=== PATIENT | male | born 1980 | race Caucasian/White ===

== ENCOUNTER 2016-07-01 08:08 | Day surgery (SDC) | payer BC, OTHER ==
[~2016-07-01 08:08] MED LIST: Lactated Ringers 1,000 ML IV SCH; Midazolam 1 MG/ML 2 ML SDV ONE; Propofol 200 MG/20 ML SDV ONE; fentaNYL 100 MCG/2 ML SDV ONE
--- NOTE | 2016-07-01 08:38 | PCM.PREANE ---
Preanesthetic Assessment - Anesthesia/Transfusion/Family Hx Anesthesia History: Prior Anesthesia Without Reaction Family History of Anesthesia Reaction: No Transfusion History: No Prior Transfusion(s) Intubation History: Unknown - Review of Systems General: No Symptoms Pulmonary: No Symptoms Cardiovascular: No Symptoms Gastrointestinal: Abdominal pain Neurological: No Symptoms Other: Reports: None - Physical Assessment O2 Sat by Pulse Oximetry: 100 Respiratory Rate: 14 Vital Signs: Last Vital Signs Temp 36 C 07/01/16 08:19 Pulse 58 L 07/01/16 08:19 Resp 14 07/01/16 08:19 BP 115/73 07/01/16 08:19 Pulse Ox 100 07/01/16 08:19 Height: 2.01 m Weight: 98.883 kg ASA Class: 1 Mental Status: Alert & Oriented x3 Airway Class: Mallampati = 2 Dentition: Reports: Normal Dentition Thyro-Mental Finger Breadths: 3 Mouth Opening Finger Breadths: 3 ROM/Head Extension: Full Lungs: Clear to auscultation, Normal respiratory effort Cardiovascular: Regular Rate, Regular Rhythm - Allergies Allergies/Adverse Reactions: Allergies Allergy/AdvReac Type Severity Reaction Status Date / Time Penicillins Allergy Shortness Verified 06/27/16 07:57 of Breath - Blood Blood Available: No - Anesthesia Plan Pre-Op Medication Ordered: None - Acknowledgements Anesthesia Type Planned: MAC Pt an Appropriate Candidate for the Planned Anesthesia: Yes Alternatives and Risks of Anesthesia Discussed w Pt/Guardian: Yes Pt/Guardian Understands and Agrees with Anesthesia Plan: Yes PreAnesthesia Questionnaire Gastrointestinal History: Reports: Other (See Below) Other Gastrointestinal History: occasional heartburn, abdominal pain, blood in stool Musculoskeletal History: Reports: Fracture Other Musculoskeletal History: hx fx wrist - Past Surgical History Head Surgeries/Procedures: Reports: None HEENT Surgical History: Reports: LASIK Musculoskeletal Surgical History: Reports: Other (See Below) Other Musculoskeletal Surgeries/Procedures:: hx right bunionectomy - SUBSTANCE USE Smoking Status *Q: Never Smoker Recreational Drug Use History: No - HOME MEDS Home Medications: Home Meds Ibuprofen 400 mg PO ASDIRECTED PRN 06/27/16 [History] - CURRENT (IN HOUSE) MEDS Current Meds: Current Medications Lactated Ringer's (Ringers, Lactated) 1,000 mls @ 125 mls/hr IV ASDIRECTED [facility] Last Admin: 07/01/16 08:21 Dose: 125 mls/hr Discontinued Medications Fentanyl (Sublimaze) Confirm Administered Dose 100 mcg .ROUTE .STK-MED ONE Stop: 07/01/16 07:20 Midazolam HCl (Versed 1 Mg/Ml) Confirm Administered Dose 2 mg .ROUTE .STK-MED ONE Stop: 07/01/16 07:20 Propofol (Diprivan 20 Ml) Confirm Administered Dose 400 mg .ROUTE .STK-MED ONE Stop: 07/01/16 07:20
--- NOTE | 2016-07-01 09:43 | PCM.OPNOTE ---
- General Post-Op/Procedure Note Date of Surgery/Procedure: 07/01/16 Operative Procedure(s): colonoscopy w bx Findings: see dict [id number], addendum [id number] Pre Op Diagnosis: rectal bleed Post-Op Diagnosis: hemorrhoid Anesthesia Technique: Moderate sedation Primary Surgeon: Igor Mccormick Pathology: random colon bx Complications: None Condition: Good
--- NOTE | 2016-07-01 09:51 | PCM.POSTAN ---
POST ANESTHESIA ASSESSMENT - MENTAL STATUS Mental Status: alert, oriented - RESPIRATORY Respiratory Status: respiratory rate WNL, airway patent, O2 saturation stable - CARDIOVASCULAR CV Status: pulse rate WNL, blood pressure stable - GASTROINTESTINAL GI Status: no symptoms - POST OP HYDRATION Hydration Status: adequate & stable - OBSERVATIONS Free Text/Narrative:: no anesthesia problems
[2016-07-01 10:14] VITALS: BP 111/62
--- NOTE | 2016-07-01 13:36 | OR ---
SURGEON: Igor Mccormick MD DATE OF PROCEDURE: 07/01/2016 ADDENDUM: Random biopsy was performed throughout the colon for bloody diarrhea and abdominal pain. SHEREEN / ANNITA /[id number]
--- NOTE | 2016-07-01 13:48 | OR ---
SURGEON: Igor Mccormick MD DATE OF PROCEDURE: 07/01/2016 PREOPERATIVE DIAGNOSIS: Rectal bleeding. POSTOPERATIVE DIAGNOSIS: Internal hemorrhoid. PROCEDURE PERFORMED: Colonoscopy with biopsy. FINDINGS: 1. The patient is easily sedated with [employer]IO [employer] INVESTIGATOR and Diprivan. The patient is soundly snoring. 2. Bowel prep is excellent with very little liquid stool. No semi-formed stool. 3. The patient's colon rather straight forward. Cecum indicated by ileocecal fold, one-to-one indentation, light immittance, and appendiceal orifice and mucosa examined upon scope pulling out. The patient does not have polyp, mass, diverticulosis, inflammation, stricture, ulceration, bleeding, or AV malformation. The patient does have 2 large anal tags and some mild internal hemorrhoids. No external hemorrhoids. The patient would benefit from repeat colonoscopy 10 years from today and if the bleeding continue to bother, the patient may benefit from internal hemorrhoidectomy just for symptomatic. We will discuss this on followup appointment. The patient would benefit from repeat colonoscopy 10 years from today. DESCRIPTION OF PROCEDURE: The patient was taken to the endoscopy room. A time out was called, patient identified, and procedure identified. Diprivan was then administrated. Patient went from awake to sleep, hearing doctor talking or door closing is normal. Perineum inspection and digital examination were then performed. A well- lubricated colonoscope was gently inserted through the rectum, advanced past the rectosigmoid junction, the descending colon, splenic flexure, transverse colon, hepatic flexure, ascending colon, arrived to the cecum. Cecum was identified as dictated in the finding. Then the scope was carefully withdrawn while attention was paid to the mucosal surface for any abnormality. Air will be sucked out during the scope withdrawal. At the rectum, retroflexed to examine any rectal diseases, fistula or hemorrhoids. During mucosal examination, random biopsy performed. Patient tolerated procedure well. There were no intraoperative complications, and Dr. Mccormick was present throughout the whole procedure. SHEREEN / ANNITA /[id number] DEVIKA
== END 2016-07-01 10:18 | disposition home or self-care (01) ==
LOC: MW.SDS 08:08
PROVIDERS: ATTEND Surgery
DX: K64.4 Residual hemorrhoidal skin tags (principal); K64.8 Other hemorrhoids; R10.9 Unspecified abdominal pain; Z98.890 Other specified postprocedural states; Z88.0 Allergy status to penicillin; Z72.89 Other problems related to lifestyle
CPT/HCPCS: 45380; 88305; J2250; J3010; J7120; J2704

== ENCOUNTER 2016-10-24 07:11 | Emergency (ER) | payer OTHER ==
[2016-10-24] MEDS ORDERED: Acetaminophen/HYDROcodone 325-7.5 MG Tab PO ONE (07:25)
--- NOTE | 2016-10-24 07:27 | EDM.PDOC ---
ED HPI GENERAL MEDICAL PROBLEM - General Chief Complaint: General Stated Complaint: PAINFUL RIBS Time Seen by Provider: 10/24/16 07:20 - History of Present Illness INITIAL COMMENTS - FREE TEXT/NARRATIVE: HISTORY AND PHYSICAL: History of present illness: The patient is a 36-year-old healthy male who presents with complaints to right anterior ribs that started last evening while he was playing basketball and was accidentally hit by somebody's shoulder in that region as he was going up for a rebound. The patient did not pass out or black out and did not fall to the ground and complains only of pain at his right anterior ribs. He has no abdominal pain no headache no neck or back pain. The patient said that he took ibuprofen last night and it was feeling better and he when he woke this morning the pain seemed worse and it was harder to take a deep breath. He's had no nausea or vomiting and no other complaints. Prior to this event he was in his usual state of good health with no systemic complaints Review of systems: As per history of present illness and below otherwise all systems reviewed and negative. Past medical history: As per history of present illness and as reviewed below otherwise noncontributory. Surgical history: As per history of present illness and as reviewed below otherwise noncontributory. Social history: No reported history of drug or alcohol abuse. Family history: As per history of present illness and as reviewed below otherwise noncontributory. Physical exam: General: Well-developed well-nourished man who is nontoxic and speaking clearly in the ED. He is not breathless and his vital signs have been reviewed by me HEENT: Atraumatic, normocephalic, negative for conjunctival pallor or scleral icterus, mucous membranes moist, throat clear, neck supple, nontender, trachea midline. Lungs: Clear to auscultation with no work of breathing, breath sounds equal bilaterally, chest wall is tender anteriorly at the right lower rib area without any defects deformities crepitus or ecchymosis. I can reproduce the pain when I palpate this area. Heart: S1S2, regular rate and rhythm no overt murmurs Abdomen: Soft, nondistended, nontender. Negative for masses or hepatosplenomegaly. Negative for costovertebral tenderness. Skin: No evidence of any diaphoresis no rashes or lesions are seen, turgor is normal Genitourinary: Deferred. Rectal: Deferred. Extremities: Atraumatic, negative for cords or calf pain. Neurovascular unremarkable. Full range of motion without defects or deficits Neuro: Awake, alert, oriented. Cranial nerves II through XII unremarkable. Cerebellum unremarkable. Motor and sensory unremarkable throughout. Exam nonfocal. Diagnostics: Right ribs with chest x-ray Therapeutics: Guido I discussed with the patient the negative x-rays and have offered him further evaluation with labs and a CAT scan due to his level of discomfort. He is deferring that testing at this time and said he will monitor the pain and return as indicated. He is aware of my concerns and accepts them. I've advised using [id number] ibuprofen and I will give him a few tramadol and advise follow-up with his provider in the clinic. Impression: Right chest wall contusion Definitive disposition and diagnosis as appropriate pending reevaluation and review of above. right rib Pain Score (Numeric/FACES): 6 - Related Data Allergies Allergy/AdvReac Type Severity Reaction Status Date / Time Penicillins Allergy Shortness Verified 06/27/16 07:57 of Breath Home Meds: Home Meds Ibuprofen 400 mg PO ASDIRECTED PRN 06/27/16 [History] Past Medical History - Past Health History Medical/Surgical History: Denies Medical/Surgical History Gastrointestinal History: Reports: Other (See Below) Other Gastrointestinal History: occasional heartburn, abdominal pain, blood in stool Musculoskeletal History: Reports: Fracture Other Musculoskeletal History: hx fx wrist - Infectious Disease History Infectious Disease History: Reports: Chicken Pox - Past Surgical History Head Surgeries/Procedures: Reports: None HEENT Surgical History: Reports: LASIK Musculoskeletal Surgical History: Reports: Other (See Below) Other Musculoskeletal Surgeries/Procedures:: hx right bunionectomy Social & Family History - Tobacco Use Smoking Status *Q: Never Smoker - Caffeine Use Caffeine Use: Reports: None - Recreational Drug Use Recreational Drug Use: No ED ROS GENERAL - Review of Systems Review Of Systems: ROS reveals no pertinent complaints other than HPI. ED EXAM, GENERAL - Physical Exam Exam: See Below (See dictation) Course - Vital Signs Last Recorded V/S: Last Vital Signs Temp 36.6 C 10/24/16 07:17 Pulse 65 10/24/16 07:17 Resp 18 10/24/16 07:17 BP 140/73 10/24/16 07:17 Pulse Ox 98 10/24/16 07:17 - Orders/Labs/Meds Orders: Active Orders 24 hr Category Date Time Status Ribs 2V w Chest Rt [CR] Stat Exams 10/24/16 07:24 Taken Meds: Medications Discontinued Medications Generic Name Dose Route Start Last Admin Trade Name Jose PRN Reason Stop Dose Admin Hydrocodone Bitart/Acetaminophen 1 tab 10/24/16 07:25 10/24/16 07:31 [place] 325-7.5 Mg PO 10/24/16 07:26 1 tab ONETIME ONE Administration Departure - Departure Time of Disposition: 08:16 Disposition: Home, Self-Care 01 Condition: Good Clinical Impression: Chest wall contusion Qualifiers: Encounter type: initial encounter Laterality: right Qualified Code(s): S20.211A - Contusion of right front wall of thorax, initial encounter - Discharge Information Referrals: PCP,None [Primary Care Provider] - Forms: ED Department Discharge Additional Instructions: The following information is given to patients seen in the emergency department who are being discharged to home. This information is to outline your options for follow-up care. We provide all patients seen in our emergency department with a follow-up referral. The need for follow-up, as well as the timing and circumstances, are variable depending upon the specifics of your emergency department visit. If you don't have a primary care physician on staff, we will provide you with a referral. We always advise you to contact your personal physician following an emergency department visit to inform them of the circumstance of the visit and for follow-up with them and/or the need for any referrals to a consulting specialist. The emergency department will also refer you to a specialist when appropriate. This referral assures that you have the opportunity for followup care with a specialist. All of these measure are taken in an effort to provide you with optimal care, which includes your followup. Under all circumstances we always encourage you to contact your private physician who remains a resource for coordinating your care. When calling for followup care, please make the office aware that this follow-up is from your recent emergency room visit. If for any reason you are refused follow-up, please contact the [facility] emergency department at and ask to speak to the emergency department charge nurse. [facility] Primary care- Internal Medicine and Family [address] [address] Use ice to area of bruising and pain and use [id number] ibuprofen as we discussed. Use the stronger pain medication, tramadol, you have been given as needed. Please return to ER as needed and as we discussed and call and follow- up with a clinic provider in the next few days for further reevaluation and care - My Orders Last 24 Hours: My Active Orders 10/24/16 07:24 Ribs 2V w Chest Rt [CR] Stat - Assessment/Plan Last 24 Hours: My Active Orders 10/24/16 07:24 Ribs 2V w Chest Rt [CR] Stat
[2016-10-24 08:43] VITALS: BP 127/94
--- NOTE | 2016-10-24 12:09 | CR ---
EXAM DATE: 10/24/16 PATIENT'S AGE: 36 Patient: NENA CHA Facility: [place], [place] Site . Site : 1980 Study: XRay Chest Right [id number] ribs/cxr-10/24/2016 7:50:45 AM Ordering Physician: Dario Wilson Final Report: INDICATION: Trauma to the right ribcage; shortness of breath; chest pain. Comparison: Chest radiograph January 21, 2010. Technique: Five view study chest and right rib cage. Findings: Normal sized cardiac silhouette. Clear lung laboy without evidence of acute pneumonic infiltrates or CHF. No pneumothorax or pleural effusion. Azygos fissure; normal variant. No evidence of fracture involving the right ribcage . No pneumothorax. Impression: 1. No evidence of rib fracture involving the right ribcage detail. 2. No pneumothorax or pleural effusion. 3. Azygos fissure normal variant. 4. No interval change. Dictated by Tara Sy MD @ Oct 24 2016 7:52AM (Electronic Signature) Report Signed by Proxy. [facility]
== END 2016-10-24 08:39 | disposition home or self-care (01) ==
LOC: MW.ED 07:11
DX: S20.211A Contusion of right front wall of thorax, initial encounter (principal); Z88.0 Allergy status to penicillin; Z98.890 Other specified postprocedural states; W51.XXXA Accidental striking against or bumped into by another person, initial encounter; Y93.67 Activity, basketball
CPT/HCPCS: 71101; 99283; A9270